=== PATIENT | male | born 1955 | race African-American/Black ===

== ENCOUNTER 2016-11-09 03:18 | Emergency (ER) | payer OTHER ==
[~2016-11-09] VITALS: Ht 177.8 cm; Wt 75.0 kg
[2016-11-09] MEDS ORDERED: DIGOXIN 500MCG/2ML AMP IV ONE (04:15)
[2016-11-09 04:30] LABS: BASOPHILS % 0.9 % (0.0-2.0); EOSINOPHILS % 2.6 % (0.0-5.0); HEMATOCRIT. 45.7 % (42.0-52.0); HEMOGLOBIN. 15.6 g/dL (14.0-18.0); LYMPHOCYTES % 27.7 % (20.0-50.0); MEAN CORPUSCULAR VOLUME 87.8 fL (80.0-94.0); MEAN PLATELET VOLUME 7.2 fl (7.4-10.4); NEUTROPHILS % 59.8 % (40.0-76.0); PLATELET 225 x1000/uL (130-400); RED BLOOD CELL COUNT 5.21 mill/uL (4.7-6.1); RED CELL DISTRIBUTION WIDTH 13.5 % (11.6-14.6)
[2016-11-09 04:34] LABS: INR 2.1; PROTHROMBIN TIME 22.3 sec
[2016-11-09 04:42] LABS: CARBON DIOXIDE 23 mEq/L (21-32); CHLORIDE 107 mEq/L (98-107); TROPONIN I < 0.02 ng/mL (0.00-0.04)
[2016-11-09 04:51] LABS: DIGOXIN 0.5 ng/mL (0.9-2.0)
[2016-11-09 06:44] VITALS: BP 133/90
== END 2016-11-09 06:56 | disposition home or self-care (01) ==
LOC: ER 03:29
DX: I48.91 Unspecified atrial fibrillation (principal)
CPT/HCPCS: 36415; 71010; 80053; 80162; 83880; 84484; 85025; 85610; 93005; 96374; 99285; J1160; Z7610